=== PATIENT | male | born 1965 | race Caucasian/White ===

== ENCOUNTER 2016-05-30 08:37 | Inpatient (IN) | payer BC ==
[2016-05-30] VITALS (7 sets, daily range): BP systolic 127–155; BP diastolic 73–92; PULSE 69–79; RESP 17–20; TEMP 98.3–98.7; O2SAT 94–97
[~2016-05-30] VITALS: Ht 177.8 cm; Wt 87.8 kg
[~2016-05-30 08:37] MED LIST: ALBU8I INH; CITA20 PO; IBUP-1116 PO; MONT10 PO; NEXI20CA PO; XYZA5TAB2 PO; ZIAC106.25 PO
[2016-05-30] MEDS ORDERED: MONT10TA4 PO (09:08)
[2016-05-30] MEDS ORDERED: CELE20TA PO (09:08)
[2016-05-30] MEDS ORDERED: NEXI20CA PO (09:08)
[2016-05-30] MEDS ORDERED: BISO5TAB2 PO (09:08)
[2016-05-30 10:06] LABS: AUTOMATED NEUTROPHIL # 6.7 TH/MM3 (1.8-7.7); BASOPHIL % 0.2 % (0.0-2.0); EOSINOPHIL % 0.4 % (0.0-4.0); HEMATOCRIT 42.6 % (39.0-51.0); LYMPH % 6.3 % (9.0-44.0); LYMPHOCYTE # 0.5 TH/MM3 (1.0-4.8); MEAN CELL VOLUME 102.1 FL (80.0-100.0); MEAN CORPUSCULAR HEMOGLOBIN 35.7 PG (27.0-34.0); MEAN CORPUSCULAR HGB CONC 34.9 % (32.0-36.0); MONO % 12.2 % (0.0-8.0); NEUT % 80.9 % (16.0-70.0); PLATELET COUNT 70 TH/MM3 (150-450); RED BLOOD COUNT 4.17 MIL/MM3 (4.50-5.90); WHITE BLOOD COUNT 8.3 TH/MM3 (4.0-11.0)
[2016-05-30 10:07] LABS: HEMO FLAGS AUTO DIFF
[2016-05-30] MEDS: SODIUM CHLORIDE 0.9% FLUSH 5 ML FLUSH IVF PRN ×5 (10:09→14:14)
[2016-05-30 10:15] LABS: APTT (PATIENT) 29.9 SEC (24.3-30.1); INTERNATIONAL NORMALIZED RATIO 1.3 RATIO; PROTHROMBIN TIME - PATIENT 14.4 SEC (9.8-11.6)
[2016-05-30 10:34] LABS: ALKALINE PHOSPHATASE 214 U/L (45-117); ALT (GPT) 44 U/L (12-78); ANION GAP 9 MEQ/L (5-15); AST (GOT) 122 U/L (15-37); BICARBONATE 32.1 MEQ/L (21.0-32.0); BLOOD UREA NITROGEN 6 MG/DL (7-18); CHLORIDE 91 MEQ/L (98-107); GLOMERULAR FILTRATION RATE 97 ML/MIN (>89); INDIRECT BILIRUBIN 2.1 MG/DL (0.0-0.8); SODIUM (NA) 132 MEQ/L (136-145); TOTAL BILIRUBIN ADULT 4.8 MG/DL (0.2-1.0)
[2016-05-30 10:39] LABS: POTASSIUM 2.6 MEQ/L (3.5-5.1)
[2016-05-30] MEDS ORDERED: MAGNESIUM SULFATE 1 GM PREMIX 100 ML IV ONE (10:45)
[2016-05-30] MEDS ORDERED: POTASSIUM CHLOR 20 MEQ PREMIX 100 ML IV ONE (10:45)
[2016-05-30] MEDS ORDERED: POTASSIUM CHLORIDE 20 MEQ CONTROLLED RELEASE TAB PO ONE (10:45)
[2016-05-30 10:48] LABS: SCAN/DIFF AUTO DIFF CONFIRMED
[2016-05-30 10:49] LABS: PLATELET ESTIMATE SMEAR LOW (NORMAL); PLATELET MORPHOLOGY NORMAL (NORMAL)
--- NOTE | 2016-05-30 10:55 | PD ---
HPI Chief Complaint: Abdominal Pain Time Seen by Provider: 09:19 Travel History International Travel<30 days: No Contact w/Intl Traveler<30days: No Traveled to known affect area: No History of Present Illness HPI 51yo M with PMH of chronic alcohol abuse presents to the ED with c/o abdominal pain for 1 week. Pain started in right side but now it is left upper abdomen. Pain is constant and was remains in left side now. Pain is worst with movement and coughing. Did not take anything for pain. +Increased abdominal distension. +Decreased appetite and dry heaving. +Nonbloody diarrhea for 2 weeks. Denies travel outside [place]. Denies any fever, chest pain, sob, urinary complaints. States he is not allergic to morphine. PFSH Past Medical History Hx Anticoagulant Therapy: No Blood Disorders: No Anxiety: Yes Depression: Yes Heart Rhythm Problems: Yes Cancer: No Cardiovascular Problems: Yes High Cholesterol: Yes Chemotherapy: No Chest Pain: No Congestive Heart Failure: No Cerebrovascular Accident: No Diabetes: No Diminished Hearing: No Endocrine: No Gastrointestinal Disorders: Yes (ACID REFLUX) GERD: Yes Genitourinary: No Hepatitis: No Hiatal Hernia: No Hypertension: Yes Immune Disorder: No Musculoskeletal: No Neurologic: No Psychiatric: No Reproductive: No Respiratory: No Immunizations Current: Yes Thyroid Disease: No Past Surgical History Abdominal Surgery: No AICD: No Body Medical Devices: PLATES AND SCREWS IN LUMBAR AREA Cardiac Surgery: No Ear Surgery: No Endocrine Surgery: No Eye Surgery: No Genitourinary Surgery: No Gynecologic Surgery: No Hysterectomy: No Joint Replacement: No Oral Surgery: No Pacemaker: No Thoracic Surgery: No Other Surgery: Yes (ADENOIDS REMOVED) Social History Alcohol Use: Yes (6-7 shots vodka dly) Tobacco Use: Yes (1 pk) Substance Use: No Allergies-Medications (Allergen,Severity, Reaction): Coded Allergies: Shellfish (Verified Allergy, Intermediate, HIVES, 01/11/16) Morphine (Verified Adverse Reaction, Intermediate, Nausea/Vomiting, ) Reported Meds & Prescriptions Reported Meds & Active Scripts Active Reported Montelukast (Montelukast Sodium) 10 Mg Tab 10 Mg PO HS Bisoprolol-Hydrochlorothiazide 5-6.25 Mg Tab 1 Tab PO DAILY Nexium (Esomeprazole DR) 20 Mg Capdr 20 Mg PO DAILY Celexa (Citalopram Hydrobromide) 20 Mg Tab 20 Mg PO DAILY Review of Systems Except as stated in HPI: all other systems reviewed are Neg Physical Exam Narrative GENERAL: 51yo M not in acute distress. SKIN: Warm and dry. HEAD: Atraumatic. Normocephalic. EYES: Pupils equal and round. No scleral icterus. No injection or drainage. CARDIOVASCULAR: Regular rate and rhythm. No murmur appreciated. RESPIRATORY: No accessory muscle use. Clear to auscultation. Breath sounds equal bilaterally. GASTROINTESTINAL: Abdomen soft, mildly distended. +TTP epigastric and LUQ. No rebound tenderness or guarding. MUSCULOSKELETAL: No obvious deformities. No clubbing. No cyanosis. No edema. NEUROLOGICAL: Awake and alert. No obvious cranial nerve deficits. Motor grossly within normal limits. Normal speech. PSYCHIATRIC: Appropriate mood and affect; insight and judgment normal. Data Data Last Documented VS Vital Signs Date Time Temp Pulse Resp B/P Pulse Ox O2 Delivery O2 Flow Rate FiO2 05/30/16 12:38 71 19 132/78 94 05/30/16 10:18 Room Air 05/30/16 09:08 98.7 Orders Basic Metabolic Panel (Bmp) (05/30/16 09:28) Complete Blood Count With Diff (05/30/16 09:28) Lipase (05/30/16 09:28) Prothrombin Time / Inr (Pt) (05/30/16 09:28) Act Partial Throm Time (Ptt) (05/30/16 09:28) Urinalysis - C+S If Indicated (05/30/16 09:28) Ct Abd/Pel W Iv Contrast(Rout) (05/30/16 09:28) Iv Access Insert/Monitor (05/30/16 09:28) Ecg Monitoring (05/30/16 09:28) Oximetry (05/30/16 09:28) Sodium Chloride 0.9% Flush (Ns Flush) (05/30/16 09:30) Electrocardiogram (05/30/16 09:28) Hepatic Functional Panel (05/30/16 09:28) Alcohol (Ethanol) (05/30/16 09:28) Potassium Chlor 20 Meq Premix (Kcl 20 Me (05/30/16 10:45) Potassium Chloride (Kcl) (05/30/16 10:45) Magnesium Sulfate 1 Gm Premix (Magnesium (05/30/16 10:45) Iohexol 350 Inj (Omnipaque 350 Inj) (05/30/16 12:00) Morphine Inj (Morphine Inj) (05/30/16 13:00) Place In Observation (05/30/16 ) Admit Order (Ed Use Only) (05/30/16 13:07) Code Status (05/30/16 13:06) Vital Signs (Adult) Q4H (05/30/16 13:06) Activity Oob With Assistance (05/30/16 13:06) Intake + Output HERBERT.QSHIFT (05/30/16 13:06) Diet Clear Liquid (05/30/16 Lunch) Sodium Chlor 0.9% 1000 Ml Inj (Ns 1000 M (05/30/16 13:06) Sodium Chloride 0.9% Flush (Ns Flush) (05/30/16 13:15) Sodium Chloride 0.9% Flush (Ns Flush) (05/30/16 21:00) Acetaminophen (Tylenol) (05/30/16 13:15) Ondansetron Inj (Zofran Inj) (05/30/16 13:15) Prochlorperazine Supp (Compazine Supp) (05/30/16 13:15) Bisacodyl Supp (Dulcolax Supp) (05/30/16 13:15) Magnesium Hydroxide Liq (Milk Of Magnesi (05/30/16 13:15) Sennosides (Senokot) (05/30/16 13:15) Basic Metabolic Panel (Bmp) (05/31/16 06:00) Complete Blood Count With Diff (05/31/16 06:00) Hepatic Functional Panel (05/31/16 06:00) Resp Oxygen Albert C Titrat 1-4 L (05/30/16 ) Pt Request For Service (05/30/16 13:06) Case Management Consult (05/30/16 13:06) Enoxaparin Inj (Lovenox Inj) (05/30/16 15:00) Scd Bilateral/Knee High HERBERT.BID (05/30/16 13:06) Carlos Alberto Bilateral/Knee High HERBERT.QSHIFT (05/30/16 13:06) Hepatitis Profile (05/30/16 13:06) Labs Laboratory Tests Test 05/30/16 05/30/16 09:35 10:00 White Blood Count 8.3 TH/MM3 Red Blood Count 4.17 MIL/MM3 Hemoglobin 14.9 GM/DL Hematocrit 42.6 % Mean Corpuscular Volume 102.1 FL Mean Corpuscular Hemoglobin 35.7 PG Mean Corpuscular Hemoglobin 34.9 % Concent Red Cell Distribution Width 13.0 % Platelet Count 70 TH/MM3 Mean Platelet Volume 10.9 FL Neutrophils (%) (Auto) 80.9 % Lymphocytes (%) (Auto) 6.3 % Monocytes (%) (Auto) 12.2 % Eosinophils (%) (Auto) 0.4 % Basophils (%) (Auto) 0.2 % Neutrophils # (Auto) 6.7 TH/MM3 Lymphocytes # (Auto) 0.5 TH/MM3 Monocytes # (Auto) 1.0 TH/MM3 Eosinophils # (Auto) 0.0 TH/MM3 Basophils # (Auto) 0.0 TH/MM3 CBC Comment AUTO DIFF Differential Comment AUTO DIFF CONFIRMED Platelet Estimate LOW Platelet Morphology Comment NORMAL Prothrombin Time 14.4 SEC Prothromb Time International 1.3 RATIO Ratio Activated Partial 29.9 SEC Thromboplast Time Sodium Level 132 MEQ/L Potassium Level 2.6 MEQ/L Chloride Level 91 MEQ/L Carbon Dioxide Level 32.1 MEQ/L Anion Gap 9 MEQ/L Blood Urea Nitrogen 6 MG/DL Creatinine 0.83 MG/DL Estimat Glomerular Filtration 97 ML/MIN Rate Random Glucose 107 MG/DL Calcium Level 8.1 MG/DL Total Bilirubin 4.8 MG/DL Direct Bilirubin 2.7 MG/DL Indirect Bilirubin 2.1 MG/DL Aspartate Amino Transf 122 U/L (AST/SGOT) Alanine Aminotransferase 44 U/L (ALT/SGPT) Alkaline Phosphatase 214 U/L Total Protein 6.5 GM/DL Albumin 3.2 GM/DL Lipase 229 U/L Ethyl Alcohol Level LESS THAN 3 MG/DL Urine Color DARK-YELLOW Urine Turbidity CLEAR Urine pH 7.5 Urine Specific [place] 1.012 Urine Protein TRACE mg/dL Urine Glucose (UA) NEG mg/dL Urine Ketones TRACE mg/dL Urine Occult Blood NEG Urine Nitrite NEG Urine Bilirubin SMALL Urine Urobilinogen GREATER THAN 12.0 MG/DL Urine Leukocyte Esterase NEG Urine RBC LESS THAN 1 /hpf Urine WBC 1 /hpf Urine Mucus FEW /lpf Microscopic Urinalysis Comment CULT NOT INDICATED MDM Medical Decision Making Medical Screen Exam Complete: Yes Emergency Medical Condition: Yes Interpretation(s) EKG: NSR 52bpm. Normal axis. No ST segment elevation or depression. QTc 482ms. Differential Diagnosis Acute pancreatitis vs. acute gastritis vs. colitis vs. alcohol withdrawal Narrative Course 51yo M with chronic alcohol use (last drink 4 days ago), no abdominal surgery here with epigastric and left upper abdominal pain for about 1 week. Pt has not had much appetite but no vomiting. Labs reviewed, no leukocytosis. K: 2.6 , replaced orally with 60mEq KCl and 20mEq KCl IV. Pt empirically given magnesium sulfate 1gm IV. Bilirubin is elevated and AST and alk phos is also elevate. Do not have prior LFT to compare. Lipase 229. Urine showed greater than [address] abd/pelvis showed liver that is diffusely heterogeneous and decreased in attenuation value no discrete mass or ductal dilatation. Discussed with Dr. Mills who states this may all be secondary to chronic alcohol use and states he will see patient if admitted. Discussed with Dr. Simental and accepted for observation. Pt given morphine 4mg IV for pain and states that he is not allergic and does not know why that allergy is in our computer. Diagnosis Primary Impression: Hyperbilirubinemia Additional Impression: Hypokalemia Admitting Information Admitting Physician Requests: Soumya Manuel DO May 30, 2016 10:55
[2016-05-30 11:09] LABS: BLOOD, URINE NEG (NEG); COMMENT (UR) CULT NOT INDICATED; CULTURE IF INDICATED CULT NOT INDICATED; GLUCOSE,URINE NEG (NEG); KETONE, URINE TRACE mg/dL (NEG); MUCUS URINE FEW /lpf (OCC); NITRITE,URINE NEG (NEG); PH, URINE 7.5 (5.0-8.5); URINE COLOR DARK-YELLOW (YELLW/STRAW)
[2016-05-30] MEDS ORDERED: IOHEXOL 350 MG/ML 10 ML VIAL (for RAD DIAG) IV ONE (12:00)
--- NOTE | 2016-05-30 12:10 | RADRPT ---
EXAM DATE/TIME: 05/30/2016 11:25 [facility] COMPARISON: No previous studies available for comparison. INDICATIONS : Abdomen distention with right flank pain for two weeks IV CONTRAST: 70 cc Omnipaque 350 (iohexol) IV ORAL CONTRAST: No oral contrast ingested. RADIATION DOSE: 12.26 CTDIvol (mGy) MEDICAL HISTORY : Hypertension. SURGICAL HISTORY : None. ENCOUNTER: Initial ACUITY: 2 weeks PAIN SCALE: 5/10 LOCATION: Left Abdomen TECHNIQUE: Volumetric scanning of the abdomen and pelvis was performed. Using automated exposure control and ad justment of the mA and/or kV according to patient size, radiation dose was kept as low as reasonably achievable to obtain optimal diagnostic quality images. FINDINGS: LOWER LUNGS: The visualized lower lungs are clear. LIVER: The liver appears normal in size but is diffusely inhomogeneous and decreased in attenuation. There i s 3 focal mass and no ductal dilatation. The portal venous system is patent. The gallbladder is unrem arkable with no calcified gallstones. Liver margin is mildly lobular. A moderate amount of ascitic fl uid is noted throughout the upper abdomen and pelvis. SPLEEN: Normal size without lesion. PANCREAS: Within normal limits. KIDNEYS: Normal in size and shape. There is no mass, stone or hydronephrosis. ADRENAL GLANDS: Within normal limits. VASCULAR: There is no aortic aneurysm. BOWEL/MESENTERY: There is a moderate to large amount of ascitic fluid throughout the abdomen and pelvis. There is no f ree air. The stomach, small bowel, and colon demonstrate no acute abnormality. ABDOMINAL WALL: Within normal limits. RETROPERITONEUM: There is no lymphadenopathy. BLADDER: No wall thickening or mass. REPRODUCTIVE: Within normal limits. INGUINAL: There is no lymphadenopathy or hernia. MUSCULOSKELETAL: Postoperative changes noted in the lumbar spine. CONCLUSION: 1. The liver is diffusely heterogeneous and decreased in attenuation value no discrete mass or ductal dilatation. The margin is mildly lobular. These findings are nonspecific and could indicate acute or chronic hepatocellular disease. 2. Moderate to large amount of ascitic fluid throughout the abdomen and pelvis. 3. The kidneys are unremarkable. Micah Queen MD on May 30, 2016 at 12:06 Board Certified Radiologist. This report was verified electronically.
[2016-05-30] MEDS ORDERED: MORPHINE SULFATE 4 MG/ML INJ IV PUSH ONE (13:00)
[2016-05-30] MEDS ORDERED: BISACODYL 10 MG SUPP PR PRN (13:15)
[2016-05-30] MEDS ORDERED: PROCHLORPERAZINE 25 MG SUPP PR PRN (13:15)
[2016-05-30] MEDS ORDERED: ONDANSETRON HCL 4 MG/2 ML VIAL IVP PRN (13:15)
[2016-05-30] MEDS ORDERED: ACETAMINOPHEN 325 MG TAB PO PRN (13:15)
[2016-05-30] MEDS ORDERED: SENNOSIDES 8.6 MG TAB PO PRN (13:15)
[2016-05-30] MEDS ORDERED: MAGNESIUM HYDROXIDE SUSP 30 ML CUP PO PRN (13:15)
--- NOTE | 2016-05-30 14:28 | PD.CONS ---
HPI History of Present Illness This is a 51 year old with history of alcohol abuse, HTN, presents with left sided abd pain, abdomen swelling, and decreased appetite. The pain and abdomen distension is gradual onset but worsening in severity for the past 2 weeks, the pain described as constant dull, made worse with coughing and with use of abdominal muscles, and becomes sharp shooting pain when aggravated, no relieving factors. About 2 weeks ago, he started having loose stools about 4 times a day, no hematochezia or melena reported. He also started noticing gradual onset of abd swelling and associated decreased appetite due to feeling full all the time. He reports associated Nausea but no vomiting. He has been drinking daily about 4 vodka, however, he is trying to quit and it has been 4 days since last drink. He denies recent sickness, travel or sick contact. He denies Tylenol intake. He has chronic GERD for which he takes Prevacid with good symptomatic control. He never had EGD/colonoscopy. CT showed The liver is diffusely heterogeneous and decreased in attenuation value no discrete mass or ductal dilatation. The margin is mildly lobular. These findings are nonspecific and could indicate acute or chronic hepatocellular disease. 2. Moderate to large amount of ascitic fluid throughout the abdomen and pelvis. Labs revealed Bili of 4.8, direct bili 2.7, indirect 2.1, AST 122, ALT 44, [id number]. Lipase normal. He was trying to f/u with GI as an OP, but earliest appt was 3 months out, so he never had a f/u. (Varun Morales) PFSH Past Medical History HTN HLD Depression Anxiety GERD Past Surgical History lumbar surgery with hardware adenoidectomy (Varun Morales) Coded Allergies: Shellfish (Verified Allergy, Intermediate, HIVES, 01/11/16) Medications Current Medications Medications (Trade) Dose Ordered Sig/Kristal Route Start Time Stop Time Status Last Admin IV Flush 2 ml 2 ml UNSCH PRN IVF 05/30/16 09:30 05/30/16 13:29 (NS 1000 ml Inj) 1,000 ml @ 125 mls/hr Q8H IV 05/30/16 13:06 UNV (NS Flush) 2 ml UNSCH PRN FLUSH 05/30/16 13:15 UNV (NS Flush) 2 ml BID FLUSH 05/30/16 21:00 UNV (Tylenol) 650 mg Q4H PRN PO 05/30/16 13:15 UNV (Zofran Inj) 4 mg Q6H PRN IVP 05/30/16 13:15 UNV (Compazine Supp) 25 mg Q12H PRN HI 05/30/16 13:15 UNV (Dulcolax Supp) 10 mg DAILY PRN HI 05/30/16 13:15 UNV (Milk Of Magnkie Liq) 30 ml Q12H PRN PO 05/30/16 13:15 UNV (Senokot) 17.2 mg Q12H PRN PO 05/30/16 13:15 UNV (Lovenox Inj) 40 mg Q24H SQ 05/30/16 13:15 UNV Family History Uncle had colon and liver cancer Social History - Alcohol abuse, trying to quit, last drink was 4 days ago, 4-6 vodka a day - every day smoker 1 pack a day - No illicit drug use ([employer],[employer]) GI Exam Vitals I&O Vital Signs Date Time Temp Pulse Resp B/P Pulse Ox O2 Delivery O2 Flow Rate FiO2 05/30/16 13:34 95 05/30/16 12:38 71 19 132/78 94 05/30/16 10:18 97 Room Air 05/30/16 09:08 98.7 69 17 148/92 95 Room Air 05/30/16 08:38 98.5 76 17 127/87 96 Room Air Imaging Last Impressions Abdomen/Pelvis CT 05/30/16927 Signed Impressions: Service Date/Time: Monday, May 30, 2016 11:25 - CONCLUSION: 1. The liver is diffusely heterogeneous and decreased in attenuation value no discrete mass or ductal dilatation. The margin is mildly lobular. These findings are nonspecific and could indicate acute or chronic hepatocellular disease. 2. Moderate to large amount of ascitic fluid throughout the abdomen and pelvis. 3. The kidneys are unremarkable. Micah Queen MD Laboratory Test 05/30/16 05/30/16 09:35 10:00 White Blood Count 8.3 TH/MM3 Red Blood Count 4.17 MIL/MM3 Hemoglobin 14.9 GM/DL Hematocrit 42.6 % Mean Corpuscular Volume 102.1 FL Mean Corpuscular Hemoglobin 35.7 PG Mean Corpuscular Hemoglobin 34.9 % Concent Red Cell Distribution Width 13.0 % Platelet Count 70 TH/MM3 Mean Platelet Volume 10.9 FL Neutrophils (%) (Auto) 80.9 % Lymphocytes (%) (Auto) 6.3 % Monocytes (%) (Auto) 12.2 % Eosinophils (%) (Auto) 0.4 % Basophils (%) (Auto) 0.2 % Neutrophils # (Auto) 6.7 TH/MM3 Lymphocytes # (Auto) 0.5 TH/MM3 Monocytes # (Auto) 1.0 TH/MM3 Eosinophils # (Auto) 0.0 TH/MM3 Basophils # (Auto) 0.0 TH/MM3 CBC Comment AUTO DIFF Differential Comment AUTO DIFF CONFIRMED Platelet Estimate LOW Platelet Morphology Comment NORMAL Prothrombin Time 14.4 SEC Prothromb Time International 1.3 RATIO Ratio Activated Partial 29.9 SEC Thromboplast Time Sodium Level 132 MEQ/L Potassium Level 2.6 MEQ/L Chloride Level 91 MEQ/L Carbon Dioxide Level 32.1 MEQ/L Anion Gap 9 MEQ/L Blood Urea Nitrogen 6 MG/DL Creatinine 0.83 MG/DL Estimat Glomerular Filtration 97 ML/MIN Rate Random Glucose 107 MG/DL Calcium Level 8.1 MG/DL Total Bilirubin 4.8 MG/DL Direct Bilirubin 2.7 MG/DL Indirect Bilirubin 2.1 MG/DL Aspartate Amino Transf 122 U/L (AST/SGOT) Alanine Aminotransferase 44 U/L (ALT/SGPT) Alkaline Phosphatase 214 U/L Total Protein 6.5 GM/DL Albumin 3.2 GM/DL Lipase 229 U/L Ethyl Alcohol Level LESS THAN 3 MG/DL Urine Color DARK-YELLOW Urine Turbidity CLEAR Urine pH 7.5 Urine Specific [place] 1.012 Urine Protein TRACE mg/dL Urine Glucose (UA) NEG mg/dL Urine Ketones TRACE mg/dL Urine Occult Blood NEG Urine Nitrite NEG Urine Bilirubin SMALL Urine Urobilinogen GREATER THAN 12.0 MG/DL Urine Leukocyte Esterase NEG Urine RBC LESS THAN 1 /hpf Urine WBC 1 /hpf Urine Mucus FEW /lpf Microscopic Urinalysis Comment CULT NOT INDICATED Physical Examination HEENT: normocephalic; atraumatic; no jaundice. Throat is clear. NECK: Neck is supple, no JVD, no lymphadenopathy. CHEST: Chest is clear to auscultation and percussion. CARDIAC: Regular rate and rhythm with no murmur gallop or rubs. ABDOMEN: firm , distended, nontender; hepatosplenomegaly; bowel sounds are present in all four quadrants. EXTREMITIES: No clubbing, cyanosis, or edema. SKIN: Normal; no rash; no jaundice. SECURITY REP: No focal deficits; alert and oriented times three. (Varun Morales) Assessment and Plan Plan - Elevated LFTs, left sided abd pain/ decreased appetite- Findings could represent early cirrhosis as evident by thrombocytopenia, low albumin, ascites, acute hepatitis (HDF 15) The pain is described as constant dull, made worse with coughing and with use of abdominal muscles, and becomes sharp shooting pain when aggravated, no relieving factors, on going for 2 weeks. About 2 weeks ago, he started having loose stools about 4 times a day, no hematochezia or melena reported. He also started noticing gradual onset of abd swelling and associated decreased appetite due to feeling full all the time. He reports associated Nausea but no vomiting. He has been drinking daily about 4 vodka, however, he is trying to quit and it has been 4 days since last drink. He denies recent sickness, travel or sick contact. He denies Tylenol intake. He never had EGD/colonoscopy. CT showed The liver is diffusely heterogeneous and decreased in attenuation value no discrete mass or ductal dilatation. The margin is mildly lobular. These findings are nonspecific and could indicate acute or chronic hepatocellular disease. 2. Moderate to large amount of ascitic fluid throughout the abdomen and pelvis. Labs revealed Bili of 4.8, direct bili 2.7, indirect 2.1, AST 122, ALT 44, [id number]. Lipase normal. - Ascites- CT as above - Thrombocytopenia- plt 70 secondary to liver dz - GERD- peracid at home - Alcohol abuse- counseled on cessation, it has been 4 days since last drink - Electrolyte imbalance, hyponatremia, hypokalemia, replaced per attending - HTN per attending Plan: - Clear liquids - Immunology and serology, AFP will be ordered - Diagnostic/therapeutic paracentesis - MRCP - EGD in the am - NPO mn - Alcohol cessation - colonoscopy at some point, this could be done as OP - Monitor labs - Patient seen and examined by Dr. Estes and myself and this note is written on his behalf. (Varun Morales) Physician Comments Seen and examined with [employer]ER, paracentesis, MRCP , and egd ordered. Discussed withpt. and family at bedside. ETOH cessation recommended. Will folow, thank you (Jed Estes MD) Varun Morales May 30, 2016 14:28 Jed Estes MD May 30, 2016 17:43
[2016-05-30] MEDS: SODIUM CHLOR 0.9% 1000 ML INJ 1,000 ML IV SCH ×2 (14:33→21:32)
[2016-05-30] MEDS: SODIUM CHLORIDE 0.9% FLUSH 5 ML FLUSH FLUSH SCH (14:34)
[2016-05-30] MEDS ORDERED: ENOXAPARIN SODIUM 40 MG/0.4 ML SYRINGE SQ SCH (15:00)
[2016-05-30] MEDS ORDERED: LORazepam 2 MG/ML VIAL IV PUSH PRN ×4 (15:45)
[2016-05-30] MEDS ORDERED: HALOPERIDOL LACTATE 5 MG/ML AMP IM PRN (15:45)
[2016-05-30] MEDS ORDERED: FLUMAZENIL 0.5 MG/5 ML VIAL IV PUSH PRN (15:45)
[2016-05-30] MEDS ORDERED: LORazepam 2 MG TAB PO PRN (15:45)
--- NOTE | 2016-05-30 15:45 | HHI.HP ---
[facility] Service [facility] Primary Care Physician Alen Acosta M.D. Admission Diagnosis Hyperbilirubinemia Diagnoses: Chief Complaint: abdominal pain/distention Travel History International Travel<30 Days: No Contact w/Intl Traveler <30 Da: No Traveled to Known Affected Are: No History of Present Illness 51-year-old male with history of HTN, HLD, GERD, presents with abdominal pain and distention. The patient reports 1 month he started to notice worsening abdominal distention, then 2 weeks ago he developed diffuse lower abdominal pain with radiation into the LUQ, described as sharp stabbing 8/10 pain, worse with coughing or any movement, relieved by resting to 5/10, associated with shortness of breath over the past few days. Denies fevers or chills. He's having small amounts of diarrhea 3-4x per day over the past 2 weeks, denies melena/hematochezia. Having some nausea, but no vomiting. He saw his PCP Dr. Acosta who prescribed tramadol and recommended CT abdomen however the pain worsened therefore he decided to come to hospital prior to completion of the CT. He admits to drinking alcohol on a daily basis however last drink was 4 days ago. He believes he has been experiencing alcohol withdrawal over the past few days with nausea and diaphoresis. He has no other medical complaints at this time. Review of Systems Constitutional: COMPLAINS OF: Diaphoretic episodes, DENIES: Fever, Chills, Dizziness, Change in appetite Endocrine: DENIES: Polydipsia, Polyuria, Polyphagia Eyes: DENIES: Blurred vision, Eye pain, Double Vision Ears, nose, mouth, throat: DENIES: Throat pain, Running Nose, Odynophagia Respiratory: COMPLAINS OF: Shortness of breath, DENIES: Cough, Wheezing, Sputum production Cardiovascular: DENIES: Chest pain, Palpitations, Dyspnea on Exertion, Lower Extremity Edema Gastrointestinal: COMPLAINS OF: Abdominal pain, Diarrhea, Nausea, DENIES: Black stools, Bloody stools, Constipation, Vomiting Genitourinary: DENIES: Urinary frequency, Urgency, Dysuria Musculoskeletal: DENIES: Back pain, Neck pain Integumentary: DENIES: Pruritus, Rash Hematologic/lymphatic: DENIES: Bruising, Lymphadenopathy Immunologic/allergic: DENIES: Eczema, Urticaria Neurologic: DENIES: Abnormal gait, Headache, Localized weakness, Paresthesias Psychiatric: DENIES: Anxiety, Depression Past Family Social History Past Medical History HTN HLD GERD Depression Past Surgical History lumbar surgery with hardware adenoidectomy Reported Medications Montelukast (Montelukast Sodium) 10 Mg Tab 10 Mg PO HS Bisoprolol-Hydrochlorothiazide 5-6.25 Mg Tab 1 Tab PO DAILY Nexium (Esomeprazole DR) 20 Mg Capdr 20 Mg PO DAILY Celexa (Citalopram Hydrobromide) 20 Mg Tab 20 Mg PO DAILY Allergies: Coded Allergies: Shellfish (Verified Allergy, Intermediate, HIVES, 01/11/16) Active Ordered Medications Current Medications Medications (Trade) Dose Ordered Sig/Kristal Route Start Time Stop Time Status Last Admin (NS 1000 ml Inj) 1,000 ml @ 125 mls/hr Q8H IV 05/30/16 13:06 05/30/16 14:33 (NS Flush) 2 ml UNSCH PRN FLUSH 05/30/16 13:15 (NS Flush) 2 ml BID FLUSH 05/30/16 21:00 05/30/16 14:34 (Tylenol) 650 mg Q4H PRN PO 05/30/16 13:15 (Zofran Inj) 4 mg Q6H PRN IVP 05/30/16 13:15 (Compazine Supp) 25 mg Q12H PRN IA 05/30/16 13:15 (Dulcolax Supp) 10 mg DAILY PRN IA 05/30/16 13:15 (Milk Of Magnesia Liq) 30 ml Q12H PRN PO 05/30/16 13:15 (Senokot) 17.2 mg Q12H PRN PO 05/30/16 13:15 (Lovenox Inj) 40 mg Q24H SQ 05/30/16 15:00 05/30/16 14:23 (Folate) 1 mg DAILY PO 05/31/16 09:00 06/05/16 08:59 (Vitamin B1) 100 mg DAILY PO 05/31/16 09:00 (Theragran M Tab) 1 tab DAILY PO 05/31/16 09:00 06/05/16 08:59 (Romazicon Inj) 0.2 mg Q1M PRN IV PUSH 05/30/16 15:45 (Ativan) 1 mg Q4H PRN PO 05/30/16 15:45 (Ativan Inj) 1 mg Q4H PRN IV PUSH 05/30/16 15:45 (Ativan) 2 mg Q2H PRN PO 05/30/16 15:45 (Ativan Inj) 2 mg Q2H PRN IV PUSH 05/30/16 15:45 (Ativan Inj) 2 mg Q1H PRN IV PUSH 05/30/16 15:45 (Ativan Inj) 2 mg Q15M PRN IV PUSH 05/30/16 15:45 (Haldol Inj) 2 mg Q15M PRN IM 05/30/16 15:45 (Morphine Inj) 4 mg Q3H PRN IV 05/30/16 15:45 (Roxicodone) 5 mg Q4H PRN PO 05/30/16 15:45 (Habitrol 21 Mg Patch.24 Hr) 1 patch DAILY TD 05/30/16 16:00 Miscellaneous Information 1 HS TD 05/30/16 21:00 Family History Uncle with colon and liver cancer Father with diabetes Social History Alcohol abuse, trying to quit, last drink was 4 days ago, 4-6 vodka beverages daily Tobacco use, smokes 1PPD Denies any illicit drug use, no prior IVDU Physical Exam Vital Signs Vital Signs Date Time Temp Pulse Resp B/P Pulse Ox O2 Delivery O2 Flow Rate FiO2 05/30/16 13:34 95 05/30/16 12:38 71 19 132/78 94 05/30/16 10:18 97 Room Air 05/30/16 09:08 98.7 69 17 148/92 95 Room Air 05/30/16 08:38 98.5 76 17 127/87 96 Room Air Physical Exam GENERAL: Well-nourished, well-developed middle aged male patient in [facility]. SKIN: Warm and dry. No rash. HEAD: Normocephalic. Atraumatic. EYES: Pupils equal and round. No scleral icterus. No injection or drainage. ENT: No nasal bleeding or discharge. Mucous membranes pink and moist. NECK: Supple. Trachea midline. CARDIOVASCULAR: Regular rate and rhythm. S1, S2 noted. No murmur appreciated. RESPIRATORY: No accessory muscle use. Clear to auscultation. Breath sounds equal bilaterally. GASTROINTESTINAL: Abdomen soft, non-tender, Abdominal distention with positive fluid wave. TTP at epigastric, LUQ/LLQ. No rebound. Normoactive bowel sounds x4. MUSCULOSKELETAL: No obvious deformities. Extremities without clubbing, cyanosis , or edema. NEUROLOGICAL: Awake and alert. No obvious cranial nerve deficits. Motor grossly within normal limits. Normal speech. PSYCHIATRIC: Appropriate mood and affect; insight and judgment normal. Laboratory Laboratory Tests Test 05/30/16 05/30/16 09:35 10:00 White Blood Count 8.3 Red Blood Count 4.17 Hemoglobin 14.9 Hematocrit 42.6 Mean Corpuscular Volume 102.1 Mean Corpuscular Hemoglobin 35.7 Mean Corpuscular Hemoglobin 34.9 Concent Red Cell Distribution Width 13.0 Platelet Count 70 Mean Platelet Volume 10.9 Neutrophils (%) (Auto) 80.9 Lymphocytes (%) (Auto) 6.3 Monocytes (%) (Auto) 12.2 Eosinophils (%) (Auto) 0.4 Basophils (%) (Auto) 0.2 Neutrophils # (Auto) 6.7 Lymphocytes # (Auto) 0.5 Monocytes # (Auto) 1.0 Eosinophils # (Auto) 0.0 Basophils # (Auto) 0.0 CBC Comment AUTO DIFF Differential Comment AUTO DIFF CONFIRMED Platelet Estimate LOW Platelet Morphology Comment NORMAL Prothrombin Time 14.4 Prothromb Time International 1.3 Ratio Activated Partial 29.9 Thromboplast Time Sodium Level 132 Potassium Level 2.6 Chloride Level 91 Carbon Dioxide Level 32.1 Anion Gap 9 Blood Urea Nitrogen 6 Creatinine 0.83 Estimat Glomerular Filtration 97 Rate Random Glucose 107 Calcium Level 8.1 Total Bilirubin 4.8 Direct Bilirubin 2.7 Indirect Bilirubin 2.1 Aspartate Amino Transf 122 (AST/SGOT) Alanine Aminotransferase 44 (ALT/SGPT) Alkaline Phosphatase 214 Total Protein 6.5 Albumin 3.2 Lipase 229 Ethyl Alcohol Level LESS THAN 3 Urine Color DARK-YELLOW Urine Turbidity CLEAR Urine pH 7.5 Urine Specific [place] 1.012 Urine Protein TRACE Urine Glucose (UA) NEG Urine Ketones TRACE Urine Occult Blood NEG Urine Nitrite NEG Urine Bilirubin SMALL Urine Urobilinogen GREATER THAN 12.0 Urine Leukocyte Esterase NEG Urine RBC LESS THAN 1 Urine WBC 1 Urine Mucus FEW Microscopic Urinalysis Comment CULT NOT INDICATED Result Diagram: 05/30/1635 05/30/1635 Imaging Last Impressions Abdomen/Pelvis CT 05/30/16927 Signed Impressions: Service Date/Time: Monday, May 30, 2016 11:25 - CONCLUSION: 1. The liver is diffusely heterogeneous and decreased in attenuation value no discrete mass or ductal dilatation. The margin is mildly lobular. These findings are nonspecific and could indicate acute or chronic hepatocellular disease. 2. Moderate to large amount of ascitic fluid throughout the abdomen and pelvis. 3. The kidneys are unremarkable. Micah Queen MD Assessment and Plan Problem List: (1) Hyperbilirubinemia ICD Code: E80.6 Status: Acute (2) Hypokalemia ICD Code: E87.6 Status: Acute Assessment and Plan 51-year-old male with history of HTN, HLD, GERD, presents with abdominal pain and distention [id number] Abdominal Pain/Distention with Elevated LFTs: suspected alcoholic cirrhosis with ascites, rule out other etiologies. CT abd/pelvis images reviewed, showed liver is diffusely heterogeneous, no discrete mass or ductal dilatation; margin is mildly lobular; findings are nonspecific and could indicate acute or chronic hepatocellular disease; also moderate to large amount of ascitic fluid. Labs revealed Bili of 4.8, direct bili 2.7, indirect 2.1, AST 122, ALT 44, [id number]. Lipase normal. -GI consulted -check hepatitis panel -plan for diagnostic/therapeutic abdominal paracentesis -MRCP ordered -plan for EGD tomorrow -NPO for now, continue IVF -pain control with Oxycodone prn, IV Morphine prn breakthrough, IV zofran prn Hypokalemia: likely secondary to poor oral intake. K 2.6. Given IV KCl and po KCl 60meq. Monitor BMP, replace as needed. Hyponatremia: likely secondary to dehydration/poor oral intake. Given IVF. Repeat labs in the morning. Alcohol Abuse/Withdrawal: patient mildly tremulous, last drink 4 days ago. Patient trying to quit. Start on thiamine/folate/MV. CIWA protocol with Ativan prn. Seizure precautions. Tobacco Use: counseled on cessation. Give nicotine patch. Hypertension: chronic, BP fairly well controlled. Hold patient's HCTZ for now. Depression: chronic, continue patient's Celexa. DVT Prophylaxis: hold Lovenox until after EGD Written by Xenia Ruiz, acting as scribe for Dr. Simental on 05/30/16 at 15:41. The documentation accurately reflects the work performed [id number] by me Dr. Simental on 05/30/16 at 15:41. Code Status Full Code Discussed Condition With Patient, ER MD, patient's sister at bedside Physician Certification 2 Midnight Certification Type: Admission for Inpatient Services Order for Inpatient Services The services are ordered in accordance with Medicare regulations or non- Medicare payer requirements, as applicable. In the case of services not specified as inpatient-only, they are appropriately provided as inpatient services in accordance with the 2-midnight benchmark. Estimated LOS (days): 3 days is the estimated time the patient will need to remain in the hospital, assuming treatment plan goals are met and no additional complications. Post-Hospital Plan: Home Xenia Ruiz PA-C May 30, 2016 15:45 Shayla Simental MD May 31, 2016 07:13
[2016-05-30 18:26] LABS: FERRITIN 702 NG/ML (26-388); TRANSFERRIN IRON PROFILE 152 MG/DL (200-360)
[2016-05-30] MEDS: REMOVE OLD NICODERM (NICOTINE) PATCH TD SCH (21:00)
[2016-05-30] MEDS: PANTOPRAZOLE SODIUM 40 MG VIAL IV PUSH SCH (21:33)
[2016-05-31] VITALS (9 sets, daily range): BP systolic 102–149; BP diastolic 55–93; PULSE 60–89; RESP 16–22; TEMP 98–99.7; O2SAT 92–98
[2016-05-31] MEDS: SODIUM CHLORIDE 0.9% FLUSH 5 ML FLUSH FLUSH PRN ×2 (04:50→23:53)
[2016-05-31] MEDS: SODIUM CHLOR 0.9% 1000 ML INJ 1,000 ML IV SCH ×2 (04:50→21:38)
[2016-05-31] MEDS: MORPHINE SULFATE 4 MG/ML INJ IV PRN ×3 (04:51→23:52)
[2016-05-31] MEDS: LORazepam 1 MG TAB PO PRN ×2 (08:03→17:53)
[2016-05-31] MEDS: NICOTINE 21 MG/24 HR PATCH TD SCH ×2 (09:00→13:54)
[2016-05-31] MEDS ORDERED: PROPOFOL 200 MG/20 ML AMP IV ONE (09:41)
--- NOTE | 2016-05-31 09:45 | RADRPT ---
EXAM DATE/TIME: 05/31/2016 08:21 [facility] COMPARISON: CT ABDOMEN & PELVIS W CONTRAST, May 30, 2016, 11:25. INDICATIONS: Cholelithiasis. MEDICAL HISTORY: Hypertension. SURGICAL HISTORY: Fusion, lumbar. ENCOUNTER: Initial ACUITY: 3 day PAIN SCORE: 3/10 LOCATION: Abdomen. TECHNIQUE: Multiplanar, multisequence magnetic resonance imaging of the abdomen was performed. High-resolution 3D dataset was utilized to reconstruct maximum-intensity projection (MIP) images. FINDINGS: Moderate ascites is evident. There are no focal abnormalities in the liver however exam was not tail ored to exclude such. There is no evidence for choledocholithiasis. Pancreas is grossly normal. Spleen is of normal size. There is induration in the mesentery. There is apparent debris within the peritoneum. Correlation w ith recent paracentesis is suggested. CONCLUSION: 1. There is no evidence for choledocholithiasis. 2. Significant ascites. Tee Piña MD FACR on May 31, 2016 at 9:29 Board Certified Radiologist. This report was verified electronically.
[2016-05-31 12:34] LABS: AUTOMATED NEUTROPHIL # 3.9 TH/MM3 (1.8-7.7); BASOPHIL % 0.3 % (0.0-2.0); EOSINOPHIL % 0.8 % (0.0-4.0); HEMATOCRIT 38.8 % (39.0-51.0); LYMPH % 12.9 % (9.0-44.0); LYMPHOCYTE # 0.7 TH/MM3 (1.0-4.8); MEAN CELL VOLUME 103.5 FL (80.0-100.0); MEAN CORPUSCULAR HEMOGLOBIN 35.9 PG (27.0-34.0); MEAN CORPUSCULAR HGB CONC 34.6 % (32.0-36.0); PLATELET COUNT 67 TH/MM3 (150-450); RED BLOOD COUNT 3.75 MIL/MM3 (4.50-5.90); RED CELL DISTRIBUTION WIDTH 13.3 % (11.6-17.2); WHITE BLOOD COUNT 5.1 TH/MM3 (4.0-11.0)
[2016-05-31 12:38] LABS: HEMO FLAGS AUTO DIFF
[2016-05-31 13:08] LABS: PLATELET ESTIMATE SMEAR LOW (NORMAL)
[2016-05-31 13:09] LABS: PLATELET MORPHOLOGY NORMAL (NORMAL); SCAN/DIFF AUTO DIFF CONFIRMED
[2016-05-31 13:18] LABS: BICARBONATE 29.7 MEQ/L (21.0-32.0); INDIRECT BILIRUBIN 1.2 MG/DL (0.0-0.8); TOTAL BILIRUBIN ADULT 3.8 MG/DL (0.2-1.0)
[2016-05-31] MEDS: FOLIC ACID 1 MG TAB PO SCH (13:53)
[2016-05-31] MEDS: MULTIVITAMINS/MINERALS THERAPEUTIC TAB PO SCH (13:53)
[2016-05-31] MEDS: THIAMINE HCL 100 MG TAB PO SCH (13:53)
[2016-05-31] MEDS: CITALOPRAM HYDROBROMIDE 20 MG TAB PO SCH (13:53)
[2016-05-31] MEDS ORDERED: MAGNESIUM OXIDE 400 MG TAB PO ONE (14:30)
--- NOTE | 2016-05-31 14:31 | HHI.PR ---
Subjective Remarks Seen after MRCP. He is eating, says he has no abdominal pain, tolerating food without nausea or vomiting. No fever or chills. Feels tired. Abdominal pain, is controlled by medications. Still with diarrhea. Objective Vitals Vital Signs Date Time Temp Pulse Resp B/P Pulse Ox O2 Delivery O2 Flow Rate FiO2 05/31/16 10:07 69 16 105/74 99 05/31/16 09:56 71 16 104/75 99 05/31/16 09:46 97.7 71 16 124/69 99 05/31/16 09:10 98.0 60 20 120/61 94 05/31/16 08:07 98.1 79 22 142/69 96 05/31/16 04:00 98.2 80 18 120/61 92 05/31/16 00:00 98.7 77 18 102/55 95 05/30/16 21:30 Room Air 05/30/16 20:00 98.3 79 18 155/73 95 05/30/16 19:00 100 05/30/16 18:13 98.5 71 20 137/80 95 I/O 05/30/16 05/30/16 05/30/16 05/31/16 05/31/16 05/31/16 07:00 15:00 23:00 07:00 15:00 23:00 Intake Total 480 ml 0 ml 100 ml Balance 480 ml 0 ml 100 ml Intake Oral 480 ml 0 ml Other 100 ml # Voids 2 2 # Bowel Movements 0 0 Result Diagram: 05/31/16 1212 05/31/16 1212 Imaging Last Impressions Cholangiopancreatography MRI 05/31/16 0000 Signed Impressions: Service Date/Time: Tuesday, May 31, 2016 08:21 - CONCLUSION: 1. There is no evidence for choledocholithiasis. 2. Significant ascites. Tee Piña MD FACR Abdomen/Pelvis CT 05/30/16 0928 Signed Impressions: Service Date/Time: Monday, May 30, 2016 11:25 - CONCLUSION: 1. The liver is diffusely heterogeneous and decreased in attenuation value no discrete mass or ductal dilatation. The margin is mildly lobular. These findings are nonspecific and could indicate acute or chronic hepatocellular disease. 2. Moderate to large amount of ascitic fluid throughout the abdomen and pelvis. 3. The kidneys are unremarkable. Micah Queen MD Objective Remarks GENERAL: Well-nourished, well-developed middle aged male patient in [facility]. SKIN: Warm and dry. No rash. HEAD: Normocephalic. Atraumatic. EYES: Pupils equal and round. No scleral icterus. No injection or drainage. ENT: No nasal bleeding or discharge. Mucous membranes pink and moist. NECK: Supple. Trachea midline. CARDIOVASCULAR: Regular rate and rhythm. S1, S2 noted. No murmur appreciated. RESPIRATORY: No accessory muscle use. Clear to auscultation. Breath sounds equal bilaterally. GASTROINTESTINAL: Abdomen soft, non-tender, Abdominal distention with positive fluid wave. TTP at epigastric, LUQ/LLQ. No rebound. Normoactive bowel sounds x4. MUSCULOSKELETAL: No obvious deformities. Extremities without clubbing, cyanosis , or edema. NEUROLOGICAL: Awake and alert. No obvious cranial nerve deficits. Motor grossly within normal limits. Normal speech. PSYCHIATRIC: Appropriate mood and affect; insight and judgment normal. A/P Problem List: (1) Hyperbilirubinemia ICD Code: E80.6 Status: Acute (2) Hypokalemia ICD Code: E87.6 Status: Acute Assessment and Plan 51-year-old male with history of HTN, HLD, GERD, presents with abdominal pain and distention [id number] Abdominal Pain/Distention with Elevated LFTs: suspected alcoholic cirrhosis with ascites, rule out other etiologies. CT abd/pelvis images reviewed, showed liver is diffusely heterogeneous, no discrete mass or ductal dilatation; margin is mildly lobular; findings are nonspecific and could indicate acute or chronic hepatocellular disease; also moderate to large amount of ascitic fluid. Labs revealed Bili of 4.8, direct bili 2.7, indirect 2.1, AST 122, ALT 44, [id number]. Lipase normal. -GI consulted, appreciate recommendations -check hepatitis panel, pending -plan for diagnostic/therapeutic abdominal paracentesis 05/01 -MRCP reviewed Showes significant ascites, no evidence of choledocholithiasis. -s/p EGD pending -tolerates food, continue IVF -pain control with Oxycodone prn, IV Morphine prn breakthrough, IV zofran prn Hypokalemia: likely secondary to poor oral intake. K 2.6 on admission. Given IV KCl and po KCl 60meq. Monitor BMP, replace as needed. Hyponatremia: likely secondary to dehydration/poor oral intake. Given IVF. Repeat labs in the morning. Alcohol Abuse/Withdrawal: patient mildly tremulous, last drink 4 days ago. Patient trying to quit. Start on thiamine/folate/MV. CIWA protocol with Ativan prn. Seizure precautions. Tobacco Use: counseled on cessation. Give nicotine patch. Hypertension: chronic, BP fairly well controlled. Hold patient's HCTZ for now. Depression: chronic, continue patient's Celexa. DVT Prophylaxis: hold Lovenox until after EGD Code Status Full Code Discussed Condition With Patient, GI service, family at bedside Shayla Simental MD May 31, 2016 14:31
[2016-05-31] MEDS ORDERED: POTASSIUM CHLORIDE 20 MEQ CONTROLLED RELEASE TAB PO ONE (15:15)
[2016-05-31 15:18] LABS: ANA SCREEN POS (NEG)
[2016-05-31] MEDS: SODIUM CHLORIDE 0.9% FLUSH 5 ML FLUSH FLUSH SCH ×2 (16:32→21:40)
[2016-05-31] MEDS: PANTOPRAZOLE SODIUM 40 MG VIAL IV PUSH SCH (21:39)
[2016-05-31] MEDS: REMOVE OLD NICODERM (NICOTINE) PATCH TD SCH (21:42)
--- NOTE | 2016-05-31 23:10 | EKG ---
Date Performed: 05/30/2016 Time Performed: 11:05:31 PTAGE: 51 years EKG: Sinus rhythm PROLONGED QT INTERVAL ABNORMAL ECG PREVIOUS TRACING : 01/11/2016 13.13 Compared to prior tracing no significant change DOCTOR: [place] Interpretating Date/Time 05/31/2016 23:09:15
[2016-06-01] VITALS (10 sets, daily range): BP systolic 121–159; BP diastolic 61–84; PULSE 75–95; RESP 14–16; TEMP 98–99.8; O2SAT 93–98
[2016-06-01] MEDS: LORazepam 1 MG TAB PO PRN ×4 (00:45→22:24)
[2016-06-01] MEDS: NICOTINE 21 MG/24 HR PATCH TD SCH (09:00)
[2016-06-01] MEDS: CITALOPRAM HYDROBROMIDE 20 MG TAB PO SCH (09:05)
[2016-06-01] MEDS: FOLIC ACID 1 MG TAB PO SCH (09:05)
[2016-06-01] MEDS: MULTIVITAMINS/MINERALS THERAPEUTIC TAB PO SCH (09:05)
[2016-06-01] MEDS: THIAMINE HCL 100 MG TAB PO SCH (09:05)
[2016-06-01] MEDS: SODIUM CHLORIDE 0.9% FLUSH 5 ML FLUSH FLUSH SCH ×2 (09:09→22:24)
--- NOTE | 2016-06-01 09:28 | HHI.PR ---
Subjective Remarks Denies chest pain. Patient is in nad. Says she has tolerating food. No n/v/d/c. Has abdominal pain controlled by meds. Plan for paracentesis today. No fever or chills. Objective Vitals Vital Signs Date Time Temp Pulse Resp B/P Pulse Ox O2 Delivery O2 Flow Rate FiO2 06/01/16 08:00 98.0 95 16 159/77 95 06/01/16 04:02 99.4 89 16 124/62 93 05/31/16 23:43 99.7 89 16 118/78 94 05/31/16 21:30 Room Air 05/31/16 20:27 99.7 87 18 129/81 94 05/31/16 18:17 98 21 05/31/16 16:04 98.2 79 22 149/93 98 05/31/16 12:07 98.1 68 22 131/57 96 05/31/16 10:07 69 16 105/74 99 05/31/16 09:56 71 16 104/75 99 05/31/16 09:46 97.7 71 16 124/69 99 I/O 05/31/16 05/31/16 05/31/16 06/01/16 06/01/16 06/01/16 07:00 15:00 23:00 07:00 15:00 23:00 Intake Total 0 ml 1140 ml 480 ml 240 ml Balance 0 ml 1140 ml 480 ml 240 ml Intake Oral 0 ml 240 ml 480 ml 240 ml IV Total 800 ml Other 100 ml # Voids 2 3 2 2 # Bowel Movements 0 0 0 0 Result Diagram: 05/31/16 1212 05/31/16 1212 Imaging Last Impressions Cholangiopancreatography MRI 05/31/16 0000 Signed Impressions: Service Date/Time: Tuesday, May 31, 2016 08:21 - CONCLUSION: 1. There is no evidence for choledocholithiasis. 2. Significant ascites. Tee Piña MD FACR Abdomen/Pelvis CT 05/30/16 0928 Signed Impressions: Service Date/Time: Monday, May 30, 2016 11:25 - CONCLUSION: 1. The liver is diffusely heterogeneous and decreased in attenuation value no discrete mass or ductal dilatation. The margin is mildly lobular. These findings are nonspecific and could indicate acute or chronic hepatocellular disease. 2. Moderate to large amount of ascitic fluid throughout the abdomen and pelvis. 3. The kidneys are unremarkable. Micah Queen MD Objective Remarks GENERAL: Well-nourished, well-developed middle aged male patient in [facility]. SKIN: Warm and dry. No rash. HEAD: Normocephalic. Atraumatic. EYES: Pupils equal and round. No scleral icterus. No injection or drainage. ENT: No nasal bleeding or discharge. Mucous membranes pink and moist. NECK: Supple. Trachea midline. CARDIOVASCULAR: Regular rate and rhythm. S1, S2 noted. No murmur appreciated. RESPIRATORY: No accessory muscle use. Clear to auscultation. Breath sounds equal bilaterally. GASTROINTESTINAL: Abdomen soft, non-tender, Abdominal distention with positive fluid wave. TTP at epigastric, LUQ/LLQ. No rebound. Normoactive bowel sounds x4. MUSCULOSKELETAL: No obvious deformities. Extremities without clubbing, cyanosis , or edema. NEUROLOGICAL: Awake and alert. No obvious cranial nerve deficits. Motor grossly within normal limits. Normal speech. PSYCHIATRIC: Appropriate mood and affect; insight and judgment normal. A/P Problem List: (1) Hyperbilirubinemia ICD Code: E80.6 Status: Acute (2) Hypokalemia ICD Code: E87.6 Status: Acute Assessment and Plan 51-year-old male with history of HTN, HLD, GERD, presents with abdominal pain and distention [id number] Abdominal Pain/Distention with Elevated LFTs: suspected alcoholic cirrhosis with ascites, rule out other etiologies. CT abd/pelvis images reviewed, showed liver is diffusely heterogeneous, no discrete mass or ductal dilatation; margin is mildly lobular; findings are nonspecific and could indicate acute or chronic hepatocellular disease; also moderate to large amount of ascitic fluid. Labs revealed Bili of 4.8, direct bili 2.7, indirect 2.1, AST 122, ALT 44, [id number]. Lipase normal. -GI consulted, appreciate recommendations -hepatitis panel negative. Positive BRIAN, further labs pending -plan for diagnostic/therapeutic abdominal paracentesis 05/01 -MRCP reviewed Shows significant ascites, no evidence of choledocholithiasis. -s/p EGD pending -tolerates food, continue IVF -pain control with Oxycodone prn, IV Morphine prn breakthrough, IV zofran prn Hypokalemia: likely secondary to poor oral intake. K 2.6 on admission. Given IV KCl and po KCl 60meq. Monitor BMP, replace as needed. Hypomagnesemia. Monitor and replace. Hyponatremia: likely secondary to dehydration/poor oral intake. Given IVF. Repeat labs in the morning. Alcohol Abuse/Withdrawal: patient mildly tremulous, last drink 4 days ago. Patient trying to quit. Start on thiamine/folate/MV. CIWA protocol with Ativan prn. Seizure precautions. Tobacco Use: counseled on cessation. Give nicotine patch. Hypertension: chronic, BP fairly well controlled. Hold patient's HCTZ for now. Depression: chronic, continue patient's Celexa. DVT Prophylaxis: hold Lovenox until procedures Code Status Full Code Discussed Condition With Patient, GI service, family at bedside Shayla Simental MD Jun 01, 2016 09:28
[2016-06-01] MEDS ORDERED: MAGNESIUM OXIDE 400 MG TAB PO ONE (09:30)
[2016-06-01 13:15] LABS: PERITONEAL WBC 251 /MM3 (0-10)
[2016-06-01 13:16] LABS: PERITONEAL HISTIOCYTES 9 %; PERITONEAL LYMPHS 57 %; PERITONEAL MESOTHELIAL 10 %; PERITONEAL MONOS 18 %; PERITONEAL POLYS(SEGS) 6 %
[2016-06-01] MEDS: MORPHINE SULFATE 4 MG/ML INJ IV PRN ×2 (13:30→17:51)
--- NOTE | 2016-06-01 14:23 | RADRPT ---
EXAM DATE/TIME: 06/01/2016 11:11 [facility] COMPARISON: No previous studies available for comparison. INDICATIONS : Ascites. MEDICAL HISTORY : Hypercholesterolemia. Hypertension. Gastroesophageal reflux disease. Irregular heartbeat. Depression. Anxiety. ETOH abuse. SURGICAL HISTORY : Left shoulder surgery. Lumbar fusion. Adenoidectomy. ENCOUNTER: Initial ACUITY: 3 days PAIN SCORE: 9/10 LOCATION: Right lower quadrant FLUID: Total volume of 6,000 cc of clear, yellow fluid was removed. Fluid was sent to lab for ordered studies. Post procedure scanning reveals no hematoma or other complication. TECHNIQUE: 1. Ultrasound guidance for abdominal paracentesis. 2. Paracentesis. The risks, benefits, and alternatives to ultrasound guided paracentesis were explained to the patient in detail including the risk of bleeding and infection. Written and verbal informed consent was obt ained. With the patient on the ultrasound table, ultrasound imaging was used to select the most appropriate approach for paracentesis. Overlying skin was prepped and draped in the usual sterile fashion and wi th a local anesthetic, a dermatotomy was made with an 11 blade scalpel. A 6 [place] [id number] ca theter was introduced into the peritoneal cavity and fluid was collected. The patient tolerated the procedure well and left the ultrasound suite in stable condition. CONCLUSION: Uncomplicated ultrasound guided paracentesis. Harshad Castillo MD on June 01, 2016 at 14:21 Board Certified Radiologist. This report was verified electronically.
--- NOTE | 2016-06-01 14:25 | HHI.GIFU ---
Subjective Remarks Patient is resting in bed eating lunch accompanied by family, doing much better today s/p paracentesis, states 6 L removed. (Varun Morales) Objective Vitals I&O Vital Signs Date Time Temp Pulse Resp B/P Pulse Ox O2 Delivery O2 Flow Rate FiO2 06/01/16 12:43 98.7 80 16 136/83 96 06/01/16 12:28 98.9 75 14 121/84 94 06/01/16 11:18 98.9 75 16 133/82 95 06/01/16 11:13 94 21 06/01/16 08:00 98.0 95 16 159/77 95 06/01/16 04:02 99.4 89 16 124/62 93 05/31/16 23:43 99.7 89 16 118/78 94 05/31/16 21:30 Room Air 05/31/16 20:27 99.7 87 18 129/81 94 05/31/16 18:17 98 21 05/31/16 16:04 98.2 79 22 149/93 98 I/O 05/31/16 05/31/16 05/31/16 06/01/16 06/01/16 06/01/16 07:00 15:00 23:00 07:00 15:00 23:00 Intake Total 0 ml 1140 ml 480 ml 240 ml Balance 0 ml 1140 ml 480 ml 240 ml Intake Oral 0 ml 240 ml 480 ml 240 ml IV Total 800 ml Other 100 ml # Voids 2 3 2 2 # Bowel Movements 0 0 0 0 Laboratory Laboratory Tests Test 06/01/16 06/01/16 05:00 11:41 Magnesium Level 1.4 Peritoneal Fluid WBC 251 Peritoneal Fluid RBC 405 Peritoneal Fluid Neutrophils 6 Peritoneal Fluid Lymphocytes 57 Peritoneal Fluid Monocytes 18 Peritoneal Fluid Mesothelial 10 Cells Peritoneal Fluid Histiocytes 9 Peritoneal Fluid Total Protein 2.4 Peritoneal Fluid Albumin 1.5 Peritoneal Fluid LDH 100 Peritoneal Fluid Glucose 98 Peritoneal Fluid Amylase 7 Date/Time Procedure Status Source Growth 06/01/16 11:41 Gram Stain Received Fluid Peritoneal Fluid Pending 06/01/16 11:41 Body Fluid Culture Received Fluid Peritoneal Fluid Pending 05/31/16 01:48 Cryptosporidium Exam - Final Complete Stool Stool NEGATIVE - NO CRYPTOSPORIDIUM ANTIGEN... 05/31/16 01:48 Giardia Antigen (YOANA) - Final Complete Stool Stool NEGATIVE - NO GIARDIA ANTIGEN DETECTE... 05/31/16 01:48 - Final Complete Stool Stool NO ENTERIC PATHOGENS DETECTED BY PCR... Imaging Last Impressions Cholangiopancreatography MRI 05/31/16 0000 Signed Impressions: Service Date/Time: Tuesday, May 31, 2016 08:21 - CONCLUSION: 1. There is no evidence for choledocholithiasis. 2. Significant ascites. Tee Piña MD FACR Abdomen/Pelvis CT 05/30/16 0928 Signed Impressions: Service Date/Time: Monday, May 30, 2016 11:25 - CONCLUSION: 1. The liver is diffusely heterogeneous and decreased in attenuation value no discrete mass or ductal dilatation. The margin is mildly lobular. These findings are nonspecific and could indicate acute or chronic hepatocellular disease. 2. Moderate to large amount of ascitic fluid throughout the abdomen and pelvis. 3. The kidneys are unremarkable. Micah Queen MD Physical Exam HEENT: normocephalic; atraumatic; no jaundice. Throat is clear. NECK: Neck is supple, no JVD, no lymphadenopathy. CHEST: Chest is clear to auscultation and percussion. CARDIAC: Regular rate and rhythm with no murmur gallop or rubs. ABDOMEN: Soft, nondistended, nontender; no hepatosplenomegaly; bowel sounds are present in all four quadrants. EXTREMITIES: No clubbing, cyanosis, or edema. SKIN: Normal; no rash; no jaundice. ROLL UP OPERATOR: No focal deficits; alert and oriented times three. (Carmen,Varun PODIATRY TEACHER) Assessment and Plan Plan - Cirrhosis (new diagnosis) ( MELD 11)- most likely alcohol induced, labs pending, hepatitis panel negative, AFP normal, BRIAN high, ASMA P, AMA P, alpha antitrypsin 226 ceruloplasmin P, ferritin 702, % saturation 17, celiac pending - S/p EGD on (05/31/16)---> Diaz, erythematous gastritis, poral hypertensive gastropathy , duodenal inflammation, BX pending CT showed The liver is diffusely heterogeneous and decreased in attenuation value no discrete mass or ductal dilatation. The margin is mildly lobular. These findings are nonspecific and could indicate acute or chronic hepatocellular disease. 2. Moderate to large amount of ascitic fluid throughout the abdomen and pelvis. Labs revealed Bili of 4.8, direct bili 2.7, indirect 2.1, AST 122, ALT 44, [id number]. Lipase normal. - Ascites- s/p paracentesis (06/01/16) 6 L removed, cytology, cx pending, labs no signs of infection, SAAG 1.6 portal hypertension most likely the cause of ascites - Elevated LFTs, hyperbilirubinemia. most likely hepatic dysfunction. CT as above, MRCP negative for choledocholithiasis or CBD abnormalities - Thrombocytopenia- secondary to liver dz - GERD- peracid at home - Alcohol abuse- counseled on cessation, it has been 4 days since last drink - Electrolyte imbalance, hyponatremia, hypokalemia, replaced per attending - HTN per attending Plan: - Low salt diet - Await ASMA , AMA , ceruloplasmin, celiac pending - Await cytology and fluid cx - Await bx - CMP in am - Alcohol cessation - EGD in 6 months - Monitor labs - Patient seen and examined by Dr. Estes and myself and this note is written on his behalf. (Varun Morales) Physician Comments Seen and examined with GUZMAN, doing better after paracentesis. Needs to quit ETOH. Protonix daily. (Jed Estes MD) Varun Morales Jun 01, 2016 14:25 Jed Estes MD Jun 01, 2016 16:53
[2016-06-01] MEDS: REMOVE OLD NICODERM (NICOTINE) PATCH TD SCH (22:24)
[2016-06-02] MEDS: MORPHINE SULFATE 4 MG/ML INJ IV PRN ×2 (01:37→08:27)
[2016-06-02 03:40] VITALS: BP 112/59; PULSE 81; RESP 16; TEMP 98.8; O2SAT 94
[2016-06-02 06:51] LABS: AUTOMATED NEUTROPHIL # 3.1 TH/MM3 (1.8-7.7); BASOPHIL % 0.5 % (0.0-2.0); EOSINOPHIL # 0.1 TH/MM3 (0-0.4); EOSINOPHIL % 1.2 % (0.0-4.0); HEMATOCRIT 35.8 % (39.0-51.0); LYMPH % 19.4 % (9.0-44.0); MEAN CORPUSCULAR HEMOGLOBIN 35.5 PG (27.0-34.0); MEAN CORPUSCULAR HGB CONC 34.1 % (32.0-36.0); MONO % 15.2 % (0.0-8.0); NEUT % 63.7 % (16.0-70.0); PLATELET COUNT 69 TH/MM3 (150-450); RED BLOOD COUNT 3.44 MIL/MM3 (4.50-5.90); RED CELL DISTRIBUTION WIDTH 13.2 % (11.6-17.2); WHITE BLOOD COUNT 4.9 TH/MM3 (4.0-11.0)
[2016-06-02 06:55] LABS: HEMO FLAGS AUTO DIFF
[2016-06-02 07:14] LABS: ALKALINE PHOSPHATASE 158 U/L (45-117); ALT (GPT) 37 U/L (12-78); ANION GAP 8 MEQ/L (5-15); AST (GOT) 85 U/L (15-37); BICARBONATE 25.9 MEQ/L (21.0-32.0); BLOOD UREA NITROGEN 8 MG/DL (7-18); CHLORIDE 103 MEQ/L (98-107); GLOMERULAR FILTRATION RATE 160 ML/MIN (>89); MAGNESIUM 1.3 MG/DL (1.5-2.5); POTASSIUM 3.6 MEQ/L (3.5-5.1); SODIUM (NA) 137 MEQ/L (136-145); TOTAL BILIRUBIN ADULT 2.3 MG/DL (0.2-1.0)
[2016-06-02 07:49] LABS: SCAN/DIFF AUTO DIFF CONFIRMED
[2016-06-02 08:00] VITALS: BP 143/84; PULSE 85; RESP 20; TEMP 98.5; O2SAT 94
[2016-06-02] MEDS ORDERED: VITA100T2 PO (08:14)
[2016-06-02] MEDS ORDERED: OXYC-392 PO (08:14)
[2016-06-02] MEDS ORDERED: PANT40TA3 PO (08:14)
[2016-06-02] MEDS ORDERED: MAGN100T2 PO (08:14)
--- NOTE | 2016-06-02 08:14 | HHI.DS ---
Discharge Summary Admission Date May 30, 2016 at 15:32 Discharge Date: Jun 02, 2016 Admitting Diagnosis Hyperbilirubinemia (1) Hyperbilirubinemia ICD Code: E80.6 Diagnosis: Principal (2) Hypokalemia ICD Code: E87.6 Diagnosis: Principal Procedures EGD paracentesis Brief History - From Admission 51-year-old male with history of HTN, HLD, GERD, presents with abdominal pain and distention. The patient reports 1 month he started to notice worsening abdominal distention, then 2 weeks ago he developed diffuse lower abdominal pain with radiation into the LUQ, described as sharp stabbing 8/10 pain, worse with coughing or any movement, relieved by resting to 5/10, associated with shortness of breath over the past few days. Denies fevers or chills. He's having small amounts of diarrhea 3-4x per day over the past 2 weeks, denies melena/hematochezia. Having some nausea, but no vomiting. He saw his PCP Dr. Acosta who prescribed tramadol and recommended CT abdomen however the pain worsened therefore he decided to come to hospital prior to completion of the CT. He admits to drinking alcohol on a daily basis however last drink was 4 days ago. He believes he has been experiencing alcohol withdrawal over the past few days with nausea and diaphoresis. He has no other medical complaints at this time. CBC/BMP: 06/02/16 0548 06/02/16 0548 Significant Findings Laboratory Tests Test 05/30/16 05/30/16 05/30/16 05/31/16 09:35 10:00 17:16 12:12 Red Blood Count 4.17 MIL/MM3 3.75 MIL/MM3 (4.50-5.90) (4.50-5.90) Mean Corpuscular Volume 102.1 FL 103.5 FL (80.0-100.0) (80.0-100.0) Mean Corpuscular Hemoglobin 35.7 PG 35.9 PG (27.0-34.0) (27.0-34.0) Platelet Count 70 TH/MM3 67 TH/MM3 (150-450) (150-450) Neutrophils (%) (Auto) 80.9 % 75.0 % (16.0-70.0) (16.0-70.0) Lymphocytes (%) (Auto) 6.3 % (9.0-44.0) Monocytes (%) (Auto) 12.2 % 11.0 % (0.0-8.0) (0.0-8.0) Lymphocytes # (Auto) 0.5 TH/MM3 0.7 TH/MM3 (1.0-4.8) (1.0-4.8) Monocytes # (Auto) 1.0 TH/MM3 (0-0.9) Platelet Estimate LOW (NORMAL) LOW (NORMAL) Prothrombin Time 14.4 SEC (9.8-11.6) Sodium Level 132 MEQ/L 135 MEQ/L (136-145) (136-145) Potassium Level 2.6 MEQ/L 3.0 MEQ/L (3.5-5.1) (3.5-5.1) Chloride Level 91 MEQ/L 97 MEQ/L (98-107) (98-107) Carbon Dioxide Level 32.1 MEQ/L (21.0-32.0) Blood Urea Nitrogen 6 MG/DL (7-18) Random Glucose 107 MG/DL (74-106) Calcium Level 8.1 MG/DL 7.8 MG/DL (8.5-10.1) (8.5-10.1) Total Bilirubin 4.8 MG/DL 3.8 MG/DL (0.2-1.0) (0.2-1.0) Direct Bilirubin 2.7 MG/DL 2.6 MG/DL (0.0-0.2) (0.0-0.2) Indirect Bilirubin 2.1 MG/DL 1.2 MG/DL (0.0-0.8) (0.0-0.8) Aspartate Amino Transf 122 U/L (15-37) 122 U/L (15-37) (AST/SGOT) Alkaline Phosphatase 214 U/L 189 U/L (45-117) (45-117) Albumin 3.2 GM/DL 3.1 GM/DL (3.4-5.0) (3.4-5.0) Urine Color DARK-YELLOW (YELLW/STRAW) Urine Ketones TRACE mg/dL (NEG) Urine Bilirubin SMALL (NEG) Urine Urobilinogen GREATER THAN 12.0 MG/DL (LESS THAN 2.0) Urine Mucus FEW /lpf (OCC) Iron Level 37 MCG/DL (65-175) Total Iron Binding Capacity 213 MCG/DL (250-450) Percent Iron Saturation 17.4 % (20-50) Ferritin 702 NG/ML (26-388) Anti-Nuclear Antibody Screen POS (NEG) Ynpyn-2-Aszjnrdlcks 226 mg/dL (100 - 190) Hematocrit 38.8 % (39.0-51.0) Total Protein 6.1 GM/DL (6.4-8.2) Test 06/01/16 06/01/16 06/02/16 05:00 11:41 05:48 Magnesium Level 1.4 MG/DL 1.3 MG/DL (1.5-2.5) (1.5-2.5) Peritoneal Fluid WBC 251 /MM3 (0-10) Peritoneal Fluid RBC 405 /MM3 (0-0) Red Blood Count 3.44 MIL/MM3 (4.50-5.90) Hemoglobin 12.2 GM/DL (13.0-17.0) Hematocrit 35.8 % (39.0-51.0) Mean Corpuscular Volume 104.0 FL (80.0-100.0) Mean Corpuscular Hemoglobin 35.5 PG (27.0-34.0) Platelet Count 69 TH/MM3 (150-450) Monocytes (%) (Auto) 15.2 % (0.0-8.0) Creatinine 0.54 MG/DL (0.60-1.30) Calcium Level 7.6 MG/DL (8.5-10.1) Total Bilirubin 2.3 MG/DL (0.2-1.0) Aspartate Amino Transf 85 U/L (15-37) (AST/SGOT) Alkaline Phosphatase 158 U/L (45-117) Total Protein 5.1 GM/DL (6.4-8.2) Albumin 2.5 GM/DL (3.4-5.0) Imaging Last Impressions Cyst Biopsy Asp-Paracentesis US 06/01/16 0000 Signed Impressions: Service Date/Time: May 11:11 - CONCLUSION: Uncomplicated ultrasound guided paracentesis. Harshad Castillo MD Cholangiopancreatography MRI 05/31/16 0000 Signed Impressions: Service Date/Time: Tuesday, May 31, 2016 08:21 - CONCLUSION: 1. There is no evidence for choledocholithiasis. 2. Significant ascites. Tee Piña MD FACR Abdomen/Pelvis CT 05/30/16 0928 Signed Impressions: Service Date/Time: Monday, May 30, 2016 11:25 - CONCLUSION: 1. The liver is diffusely heterogeneous and decreased in attenuation value no discrete mass or ductal dilatation. The margin is mildly lobular. These findings are nonspecific and could indicate acute or chronic hepatocellular disease. 2. Moderate to large amount of ascitic fluid throughout the abdomen and pelvis. 3. The kidneys are unremarkable. Micah Queen MD PE at Discharge GENERAL: Well-nourished, well-developed middle aged male patient in [facility]. SKIN: Warm and dry. No rash. HEAD: Normocephalic. Atraumatic. EYES: Pupils equal and round. No scleral icterus. No injection or drainage. ENT: No nasal bleeding or discharge. Mucous membranes pink and moist. NECK: Supple. Trachea midline. CARDIOVASCULAR: Regular rate and rhythm. S1, S2 noted. No murmur appreciated. RESPIRATORY: No accessory muscle use. Clear to auscultation. Breath sounds equal bilaterally. GASTROINTESTINAL: Abdomen soft, non-tender, Abdominal distention with positive fluid wave. TTP at epigastric, LUQ/LLQ. No rebound. Normoactive bowel sounds x4. MUSCULOSKELETAL: No obvious deformities. Extremities without clubbing, cyanosis , or edema. NEUROLOGICAL: Awake and alert. No obvious cranial nerve deficits. Motor grossly within normal limits. Normal speech. PSYCHIATRIC: Appropriate mood and affect; insight and judgment normal. Pt update on day of discharge Feels much better . Pain si controlled by meds. No n/v/d/c. Able to tolerate food. No tremors. Antonio follow up for EtOH detox, has a follow up plan to quit drinking EtOH Hospital Course 51-year-old male with history of HTN, HLD, GERD, presents with abdominal pain and distention [id number] Abdominal Pain/Distention with Elevated LFTs: suspected alcoholic cirrhosis with ascites, rule out other etiologies. CT abd/pelvis images reviewed, showed liver is diffusely heterogeneous, no discrete mass or ductal dilatation; margin is mildly lobular; findings are nonspecific and could indicate acute or chronic hepatocellular disease; also moderate to large amount of ascitic fluid. Labs revealed Bili of 4.8, direct bili 2.7, indirect 2.1, AST 122, ALT 44, [id number]. Lipase normal. -GI consulted, appreciate recommendations -hepatitis panel negative. Positive BRIAN, further labs pending -plan for diagnostic/therapeutic abdominal paracentesis 05/01. 6L removed, findings discusse [facility] GI specialist, ascites likely related to EtOH use -MRCP reviewed Shows significant ascites, no evidence of choledocholithiasis. 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 Findings discussed with the patient. Biopsies were obtained as well. Patient was adviced again to quit ETOH he expressed understanding. Continue PPI . To follow up with GI as OP for bx results and other tests pending. -tolerates food, continue IVF -pain control with Oxycodone prn, IV Morphine prn breakthrough, IV zofran prn Hypokalemia: likely secondary to poor oral intake. K 2.6 on admission. Given IV KCl and po KCl 60meq. Monitor BMP, replace as needed. Hypomagnesemia. Monitor and replace. Hyponatremia: likely secondary to dehydration/poor oral intake. Given IVF. Repeat labs in the morning. Alcohol Abuse/Withdrawal: patient mildly tremulous, last drink 4 days ago. Patient trying to quit. Start on thiamine/folate/MV. CIWA protocol with Ativan prn. Seizure precautions. Tobacco Use: counseled on cessation. Give nicotine patch. Hypertension: chronic, BP fairly well controlled. Hold patient's HCTZ for now. Depression: chronic, continue patient's Celexa. DVT Prophylaxis: hold Lovenox until procedures Improved. Had paracentesis with 6 L removed 06/01. Here by GI for discharge. Patient to follow-up as outpatient with PCP and consultants. Pt Condition on Discharge: Fair Discharge Disposition: Disch w/ Home Health Serv Discharge Time: > 30 minutes Discharge Instructions DIET: Follow Instructions for: Heart Healthy Diet Activities you can perform: Regular-No Restrictions Follow up Referrals: Gastroenterology - 2 Weeks with Jed Estes MD PCP Follow-up - 3-5 Days New Medications: Lorazepam (Ativan) 0.5 Mg Tab 0.5 MG PO Q8H PRN ANXIETY AND/OR AGITATION #10 Ref 0 TAB Magnesium Citrate (Magnesium Citrate) 100 Mg Tab 100 MG PO DAILY PRN CONSTIPATION #30 Ref 0 TAB Polyethylene Glycol 3350 Powder (Miralax Powder) 17 Gm Powd 17 GM PO DAILY Mix and dissolve one measuring cap-ful (17 grams) in water or juice. Constipation #1 Ref 0 BOTTLE Oxycodone (Oxycodone) 5 Mg Tab 5 MG PO Q4H PRN PAIN SCALE 3 TO 10 #12 TAB Thiamine (Vitamin B-1) 100 Mg Tab 100 MG PO DAILY mvt #30 TAB Changed Medications: Esomeprazole DR (Nexium) 20 Mg Capdr 40 MG PO DAILY gi protection #30 Ref 0 CAP (Changed from: 20 MG) Continued Medications: Bisoprolol-Hydrochlorothiazide (Bisoprolol-Hydrochlorothiazide) 5-6.25 Mg Tab 1 TAB PO DAILY Blood Pressure Management #30 Ref 0 TAB Citalopram (Celexa) 20 Mg Tab 20 MG PO DAILY Control Depression #30 Ref 0 TAB Montelukast (Montelukast) 10 Mg Tab 10 MG PO HS #30 Ref 0 TAB Shayla Simental MD Jun 02, 2016 08:14
--- NOTE | 2016-06-02 08:14 | HHI.DCPOC ---
Discharge Care Plan Goals to Promote Your Health * To prevent worsening of your condition and complications * To maintain your health at the optimal level Directions to Meet Your Goals Take your medications as prescribed Follow your dietary instruction Follow activity as directed Keep your appointments as scheduled Take your immunizations and boosters as scheduled If your symptoms worsen call your PCP, if no PCP go to Urgent Care Center or Emergency Room Smoking is Dangerous to Your Health. Avoid second hand smoke Call the 24-hour hour crisis hotline for domestic abuse at Shayla Simental MD Jun 02, 2016 08:14
[2016-06-02] MEDS ORDERED: CALCIUM CARBONATE 500 MG CHEWABLE TAB CHEW PRN (08:15)
[2016-06-02] MEDS ORDERED: CALCIUM CARBONATE 500 MG CHEWABLE TAB CHEW ONE (08:15)
[2016-06-02] MEDS ORDERED: MAGNESIUM OXIDE 400 MG TAB PO ONE (08:15)
[2016-06-02] MEDS ORDERED: LORA-392 PO (08:21)
[2016-06-02] MEDS: FOLIC ACID 1 MG TAB PO SCH (08:30)
[2016-06-02] MEDS: NICOTINE 21 MG/24 HR PATCH TD SCH (08:30)
[2016-06-02] MEDS: CITALOPRAM HYDROBROMIDE 20 MG TAB PO SCH (08:30)
[2016-06-02] MEDS: THIAMINE HCL 100 MG TAB PO SCH (08:31)
[2016-06-02] MEDS: MULTIVITAMINS/MINERALS THERAPEUTIC TAB PO SCH (08:31)
[2016-06-02] MEDS: SODIUM CHLORIDE 0.9% FLUSH 5 ML FLUSH FLUSH SCH (08:31)
[2016-06-02] MEDS ORDERED: MAGNESIUM OXIDE 400 MG TAB PO SCH (11:00)
[2016-06-02] MEDS ORDERED: PANTOPRAZOLE SOD 40 MG DELAYED RELEASE TAB PO SCH (11:00)
[2016-06-02] MEDS ORDERED: NEXI20CA PO (11:13)
[2016-06-02] MEDS ORDERED: MIRA33504 PO (11:14)
[2016-06-02 23:59] LABS: MITOCHONDRIAL ABS LESS THAN 20.0 U (())
== END 2016-06-02 11:34 | disposition home or self-care (01) | DRG 433 ==
LOC: NEPE 08:37 → NEDA 13:09 → OBSVTOIN 15:32 → NEDH 16:37 → N04A 18:13
PROVIDERS: ADMIT Hospitalist; ATTEND Hospitalist
PROC: 0DB68ZX Excision of Stomach, Via Natural or Artificial Opening Endoscopic, Diagnostic (ICD-10-PCS; 2016-05-31)
PROC: 0W9G3ZZ Drainage of Peritoneal Cavity, Percutaneous Approach (ICD-10-PCS; principal; 2016-06-01)
DX: K70.31 Alcoholic cirrhosis of liver with ascites (principal); F10.239 Alcohol dependence with withdrawal, unspecified; D69.59 Other secondary thrombocytopenia; K76.6 Portal hypertension; E87.1 Hypo-osmolality and hyponatremia; E83.42 Hypomagnesemia; K22.70 Barrett's esophagus without dysplasia; K29.70 Gastritis, unspecified, without bleeding; K21.9 Gastro-esophageal reflux disease without esophagitis; K31.89 Other diseases of stomach and duodenum; E87.6 Hypokalemia; F17.210 Nicotine dependence, cigarettes, uncomplicated; I10 Essential (primary) hypertension; F32.9 Major depressive disorder, single episode, unspecified; F41.9 Anxiety disorder, unspecified; E78.5 Hyperlipidemia, unspecified
CPT/HCPCS: 49083; 74177; 74181; 76377; 80048; 80053; 80074; 80076; 80320; 81001; 82042; 82103; 82105; 82150; 82390; 82728; 82945; 83516; 83520; 83540; 83550; 83615; 83690; 83735; 84157; 85025; 85610; 85730; 86038; 86039; 86256; 87070; 87205; 87328; 87329; 87506; 88112; 88305; 88312; 89051; 93005; 96365; 96366; 96368; C1729; C9113; J1650; J2270; J3475; J3480; J7030; Q9967

== ENCOUNTER 2016-06-26 10:10 | Day surgery (SDC) | payer BC ==
[~2016-06-26 10:10] MED LIST changes: -ALBU8I INH; +BISO5TAB2 PO; +CELE20TA PO; -CITA20 PO; -IBUP-1116 PO; +LORA-392 PO; +MAGN100T2 PO; +MIRA33504 PO; -MONT10 PO; +MONT10TA4 PO; +OXYC-392 PO; +VITA100T2 PO; -XYZA5TAB2 PO; -ZIAC106.25 PO
[2016-06-26 12:00] VITALS: BP 110/71; PULSE 71; RESP 18; TEMP 98.2
[2016-06-26] MEDS ORDERED: ALBUMIN HUMAN 25% 25 GM/100 ML BAGP IV ONE (12:00)
[2016-06-26 12:15] VITALS: BP 112/69; PULSE 72; RESP 18
[2016-06-26 12:30] VITALS: BP 112/73; PULSE 73; RESP 20
[2016-06-26 13:00] VITALS: BP 101/66; PULSE 73; RESP 18; O2SAT 94
--- NOTE | 2016-06-26 14:28 | RADRPT ---
EXAM DATE/TIME: 06/26/2016 11:05 [facility] COMPARISON: US GUIDED ABD PARACENTESIS, June 01, 2016, 11:11. INDICATIONS : Ascites. MEDICAL HISTORY : Cirrhosis. Gastroesophageal reflux disease. Hypertension. Diaz's esophogus. SURGICAL HISTORY : Colonoscopy. EGD. ENCOUNTER: Subsequent ACUITY: 1 day PAIN SCORE: 5/10 LOCATION: Left lower quadrant FLUID: Total volume of 4100 cc of clear, yellow fluid was removed. Fluid was discarded. Paracentesis was therapeutic only. Post procedure scanning reveals no hematoma or other complication. TECHNIQUE: 1. Ultrasound guidance for abdominal paracentesis. 2. Paracentesis. The risks, benefits, and alternatives to ultrasound guided paracentesis were explained to the patient in detail including the risk of bleeding and infection. Written and verbal informed consent was obt ained. With the patient on the ultrasound table, ultrasound imaging was used to select the most appropriate approach for paracentesis. Overlying skin was prepped and draped in the usual sterile fashion and wi th a local anesthetic, a dermatotomy was made with an 11 blade scalpel. A 6 Frisian [id number] ca theter was introduced into the peritoneal cavity and fluid was collected. The patient tolerated the procedure well and left the ultrasound suite in stable condition. CONCLUSION: Uncomplicated ultrasound guided paracentesis. Tee Piña MD FACR on June 26, 2016 at 14:26 Board Certified Radiologist. This report was verified electronically.
== END 2016-06-26 13:30 | disposition home or self-care (01) ==
LOC: HRAD 10:10 → HRIP 10:12 → HRAD 13:30
PROVIDERS: ATTEND Internal Medicine Gastroenterology
DX: R18.8 Other ascites (principal); I10 Essential (primary) hypertension; K21.9 Gastro-esophageal reflux disease without esophagitis
CPT/HCPCS: 49083; C1729

== ENCOUNTER 2016-07-25 09:47 | Day surgery (SDC) | payer BC ==
[2016-07-25 10:15] VITALS: BP 98/57; PULSE 86; RESP 16; TEMP 97.1; O2SAT 97
--- NOTE | 2016-07-25 10:54 | RADRPT ---
EXAM DATE/TIME: 07/25/2016 10:11 [facility] COMPARISON: US GUIDED ABD PARACENTESIS, June 26, 2016, 11:05. INDICATIONS : Ascites. MEDICAL HISTORY : Cirrhosis. Gastroesophageal reflux disease. Hypertension. Diaz's esophogus. SURGICAL HISTORY : Paracentesis. Colonoscopy. EGD. ENCOUNTER: Initial ACUITY: 1 month PAIN SCORE: 0/10 LOCATION: Abdomen. AREA EVALUATED: Abdomen. FINDINGS: Imaging of the abdomen and pelvis was performed to evaluate for ascites for possible paracentesis. The exam demonstrate only a small amount of ascites in the right upper quadrant. No procedure was per formed. CONCLUSION: 1. There is only a minimal amount of ascites. No procedure was performed. Sandeep Piña MD on July 25, 2016 at 10:53 Board Certified Radiologist. This report was verified electronically.
== END 2016-07-25 10:15 | disposition home or self-care (01) ==
LOC: HRAD 09:47 → HRIP 09:48 → HRAD 10:15
PROVIDERS: ATTEND Internal Medicine Gastroenterology
DX: R18.8 Other ascites (principal); K22.70 Barrett's esophagus without dysplasia; I10 Essential (primary) hypertension; K21.9 Gastro-esophageal reflux disease without esophagitis
CPT/HCPCS: 76705